=== PATIENT | female | born 1950 | race Caucasian/White ===

== ENCOUNTER 2022-01-16 03:17 | Inpatient (IN) | payer MEDICARE, MEDICAID ==
[~2022-01-16] VITALS: Ht 154.9 cm; Wt 51.3 kg
[2022-01-16] VITALS (43 sets, daily range): BP systolic 107–162; BP diastolic 51–95
[2022-01-16 05:38] LABS: CHLORIDE 111 mEq/L (98-107)
[2022-01-16 05:43] LABS: HEMOGLOBIN. 9.7 g/dL (12.0-16.0); MEAN CORPUSCULAR HEMOGLOBIN 34.2 pg (28.0-32.0); MEAN PLATELET VOLUME 7.9 fl (7.4-10.4); PLATELET 171 x1000/uL (130-400); RED BLOOD CELL COUNT 2.83 mill/uL (4.2-5.4); RED CELL DISTRIBUTION WIDTH 12.7 % (11.6-14.6)
[2022-01-16 07:10] LABS: PLATELET ESTIMATE NORMAL
[2022-01-16] MEDS ORDERED: ONDANSETRON HCL 4MG/2ML INJ IV PRN (07:15)
[2022-01-16] MEDS ORDERED: NITROGLYCERIN 0.4MG TABLET SL SL PRN (07:15)
[2022-01-16] MEDS ORDERED: IPRATROPIUM/ALBUTEROL 0.5-3(2.5)MG/3ML NEB NEB PRN (07:15)
[2022-01-16] MEDS ORDERED: LORAZEPAM 2MG/ML CPJ IV PRN (07:15)
[2022-01-16] MEDS ORDERED: NICARDIPINE 100 MG in SODIUM CHLORIDE 0.9% 60 ML IV PRN (08:00)
[2022-01-16] MEDS ORDERED: LEVETIRACETAM 500 MG in SODIUM CHLORIDE 0.9% 100 ML IV SCH (08:00)
[2022-01-16] MEDS: DEXT 5%/LACTATED RINGERS 1,000 ML IV SCH ×2 (08:48→21:24)
[2022-01-16] MEDS ORDERED: CEFTRIAXONE 1 G PREMIX 50 ML IV SCH (13:15)
[2022-01-16] MEDS ORDERED: KCL 20MEQ/100ML PREMIX 100 ML IV NR (14:00)
[2022-01-16] MEDS ORDERED: CEFTRIAXONE 1,000 MG in DEXTROSE 5% WATER 50 ML IV SCH (15:00)
[2022-01-16 18:12] LABS: INR 1.1; PARTIAL THROMBOPLASTIN TIME 26.3 sec (23.4-31.0); PROTHROMBIN TIME 11.8 sec (9.6-11.0)
[2022-01-16 20:34] LABS: CLARITY URINE CLOUDY (CLEAR); COLOR URINE YELLOW (YELLOW); KETONES URINE 1+ (NEGATIVE); LEUKOCYTE ESTERASE URINE NEGATIVE (NEGATIVE); NITRITE URINE NEGATIVE (NEGATIVE); OCCULT BLOOD URINE NEGATIVE (NEGATIVE); PH URINE 8.5 (4.5-8.0); PROTEIN URINE NEGATIVE (NEGATIVE); SPECIFIC GRAVITY URINE 1.013 (1.005-1.030); UROBILINOGEN URINE 0.2 E.U./dL (0.2-1.0)
[2022-01-16 20:57] LABS: *AMPHETAMINES SCREEN URINE NEGATIVE (NEGATIVE); *BARBITURATES SCREEN URINE NEGATIVE (NEGATIVE); *BENZODIAZEPINES SCREEN URINE NEGATIVE (NEGATIVE); *COCAINE SCREEN URINE NEGATIVE (NEGATIVE)
[2022-01-16 20:58] LABS: CANNABINOID URINE SCREEN NEGATIVE (NEGATIVE); OPIATES URINE SCREEN NEGATIVE (NEGATIVE); PHENCYCLIDINE URINE SCREEN NEGATIVE (NEGATIVE)
[2022-01-16 21:10] LABS: METHADONE URINE SCREEN NEGATIVE (NEGATIVE)
[2022-01-17] VITALS (75 sets, daily range): BP systolic 96–155; BP diastolic 36–111
[2022-01-17] MEDS: ACETAMINOPHEN 650MG SUPP PR PRN ×2 (03:40→12:07)
[2022-01-17 05:56] LABS: HEMATOCRIT. 28.5 % (36.0-48.0); HEMOGLOBIN. 9.9 g/dL (12.0-16.0); MEAN CORPUSCULAR HEMOGLOBIN 34.1 pg (28.0-32.0); MEAN CORPUSCULAR VOLUME 97.8 fL (81.0-99.0); RED BLOOD CELL COUNT 2.92 mill/uL (4.2-5.4)
[2022-01-17 05:57] LABS: CHLORIDE 106 mEq/L (98-107)
[2022-01-17 06:04] LABS: PHOSPHORUS 1.3 mg/dL (2.5-4.9)
[2022-01-17 07:51] LABS: PLATELET ESTIMATE NORMAL
[2022-01-17 07:52] LABS: MEAN PLATELET VOLUME 8.4 fl (7.4-10.4); PLATELET 191 x1000/uL (130-400)
[2022-01-17] MEDS: LEVETIRACETAM 500MG PREMIX 100 ML IV SCH ×2 (08:06→21:34)
[2022-01-17] MEDS: PANTOPRAZOLE SODIUM 40 MG/VIAL IV SCH (08:06)
[2022-01-17] MEDS: DEXT 5%/LACTATED RINGERS 1,000 ML IV SCH ×3 (09:55→22:34)
[2022-01-17] MEDS: PIPERACILLIN/TAZOBACTAM 3.375 G in DEXTROSE 5% WATER 50 ML IV SCH ×2 (11:50→21:34)
[2022-01-17] MEDS: MORPHINE SULFATE 2 MG/ML CPJ (NOT FOR IM USE) IV PRN (17:12)
[2022-01-17] MEDS ORDERED: NALOXONE HCL 0.4MG/ML VIAL IV PRN (17:15)
[2022-01-18] VITALS (91 sets, daily range): BP systolic 100–155; BP diastolic 32–93
[2022-01-18] MEDS: PIPERACILLIN/TAZOBACTAM 3.375 G in DEXTROSE 5% WATER 50 ML IV SCH ×3 (05:50→21:43)
[2022-01-18] MEDS: ACETAMINOPHEN 650MG SUPP PR PRN (05:52)
[2022-01-18] MEDS: LEVETIRACETAM 500MG PREMIX 100 ML IV SCH ×2 (08:51→21:43)
[2022-01-18] MEDS: PANTOPRAZOLE SODIUM 40 MG/VIAL IV SCH (08:51)
[2022-01-18] MEDS: MORPHINE SULFATE 2 MG/ML CPJ (NOT FOR IM USE) IV PRN ×2 (08:54→17:53)
[2022-01-18] MEDS ORDERED: LIDOCAINE HCL/PF 1% 10 MG/ML 5ML VIAL ONE (11:16)
[2022-01-18] MEDS ORDERED: SODIUM PHOS,M-BASIC-D-BASIC 30 MM in DEXT 5% WATER 500 ML IV SCH (14:00)
[2022-01-18] MEDS: DEXT 5%/LACTATED RINGERS 1,000 ML IV SCH (14:42)
[2022-01-19] VITALS (53 sets, daily range): BP systolic 102–139; BP diastolic 44–87
[2022-01-19] MEDS: DEXT 5%/LACTATED RINGERS 1,000 ML IV SCH ×2 (00:56→13:13)
[2022-01-19] MEDS: MORPHINE SULFATE 2 MG/ML CPJ (NOT FOR IM USE) IV PRN ×2 (00:56→15:05)
[2022-01-19] MEDS: PIPERACILLIN/TAZOBACTAM 3.375 G in DEXTROSE 5% WATER 50 ML IV SCH ×2 (05:47→12:34)
[2022-01-19 06:14] LABS: BASOPHILS % 0.6 % (0.0-2.0); EOSINOPHILS % 1.7 % (0.0-5.0); HEMATOCRIT. 25.4 % (36.0-48.0); HEMOGLOBIN. 8.9 g/dL (12.0-16.0); LYMPHOCYTES % 16.9 % (20.0-50.0); MEAN CORPUSCULAR HEMOGLOBIN 34.5 pg (28.0-32.0); MEAN PLATELET VOLUME 7.8 fl (7.4-10.4); MONOCYTES % 8.1 % (2.0-8.0); NEUTROPHILS % 72.7 % (40.0-76.0); PLATELET 129 x1000/uL (130-400); RED BLOOD CELL COUNT 2.57 mill/uL (4.2-5.4)
[2022-01-19 06:22] LABS: CHLORIDE 107 mEq/L (98-107)
[2022-01-19 06:28] LABS: PHOSPHORUS 2.1 mg/dL (2.5-4.9)
[2022-01-19] MEDS: LEVETIRACETAM 500MG PREMIX 100 ML IV SCH (09:11)
[2022-01-19] MEDS: PANTOPRAZOLE SODIUM 40 MG/VIAL IV SCH (09:11)
[2022-01-19] MEDS ORDERED: POTASSIUM PHOS,M-BASIC-D-BASIC 15 MMOL in DEXT 5% WATER 245 ML IV NR (12:00)
[2022-01-19] MEDS: ACETAMINOPHEN 650MG SUPP PR PRN (18:47)
[2022-01-19] MEDS: CEFTRIAXONE 1,000 MG in DEXTROSE 5% WATER 50 ML IV SCH (22:38)
[2022-01-20] VITALS: BP 149/56
[2022-01-20] MEDS: DEXT 5%/LACTATED RINGERS 1,000 ML IV SCH ×2 (01:03→18:46)
[2022-01-20] MEDS: ACETAMINOPHEN 650MG SUPP PR PRN (01:10)
[2022-01-20] MEDS: LEVETIRACETAM 500MG PREMIX 100 ML IV SCH ×3 (01:56→22:08)
[2022-01-20 04:00] VITALS: BP 123/57
[2022-01-20 08:00] VITALS: BP 184/76
[2022-01-20] MEDS: PANTOPRAZOLE SODIUM 40 MG/VIAL IV SCH (09:47)
[2022-01-20 10:21] LABS: CHLORIDE 107 mEq/L (98-107)
[2022-01-20 10:29] LABS: CREATINE KINASE 45 IU/L (26-192)
[2022-01-20 12:00] VITALS: BP 170/66
[2022-01-20 16:00] VITALS: BP 162/74
[2022-01-20 19:31] LABS: HEMATOCRIT. 24.7 % (36.0-48.0); HEMOGLOBIN. 8.7 g/dL (12.0-16.0); MEAN CORPUSCULAR HEMOGLOBIN 34.9 pg (28.0-32.0); MEAN CORPUSCULAR VOLUME 99.6 fL (81.0-99.0); MEAN PLATELET VOLUME 8.3 fl (7.4-10.4); PLATELET 140 x1000/uL (130-400); RED BLOOD CELL COUNT 2.48 mill/uL (4.2-5.4); RED CELL DISTRIBUTION WIDTH 13.6 % (11.6-14.6)
[2022-01-20 20:00] VITALS: BP 147/50
[2022-01-20 20:11] LABS: PLATELET ESTIMATE NORMAL
[2022-01-20] MEDS: CEFTRIAXONE 1,000 MG in DEXTROSE 5% WATER 50 ML IV SCH (22:07)
[2022-01-21] VITALS (7 sets, daily range): BP systolic 106–141; BP diastolic 45–56
[2022-01-21] MEDS: DEXT 5%/LACTATED RINGERS 1,000 ML IV SCH ×2 (06:44→20:34)
[2022-01-21 07:05] LABS: CHLORIDE 107 mEq/L (98-107)
[2022-01-21] MEDS: LEVETIRACETAM 500MG PREMIX 100 ML IV SCH ×2 (08:36→21:42)
[2022-01-21] MEDS: PANTOPRAZOLE SODIUM 40 MG/VIAL IV SCH ×2 (08:36→16:40)
[2022-01-21] MEDS ORDERED: POTASSIUM CHLORIDE INJ 40 MEQ in DEXT 5% WATER 250 ML IV ONE (10:30)
[2022-01-21] MEDS ORDERED: POTASSIUM CHLORIDE 20MEQ/PACKET PO NR (10:30)
[2022-01-21] MEDS: KCL 20MEQ/100ML X 2 FOR TOTAL KCL 40MEQ/200ML IV SCH ×2 (13:23→15:30)
[2022-01-21] MEDS: CEFTRIAXONE 1,000 MG in DEXTROSE 5% WATER 50 ML IV SCH (20:34)
[2022-01-22 04:13] VITALS: BP 107/56
[2022-01-22 08:00] VITALS: BP 116/44
[2022-01-22] MEDS: ASCORBIC ACID 500 MG TABLET PO SCH (08:03)
[2022-01-22] MEDS: ZINC SULFATE 220 MG ( 50 ) CAPSULE PO SCH (08:03)
[2022-01-22 08:04] LABS: BASOPHILS % 0.7 % (0.0-2.0); EOSINOPHILS % 0.5 % (0.0-5.0); HEMOGLOBIN. 8.9 g/dL (12.0-16.0); LYMPHOCYTES % 8.9 % (20.0-50.0); MEAN CORPUSCULAR HEMOGLOBIN 33.9 pg (28.0-32.0); MEAN CORPUSCULAR VOLUME 98.9 fL (81.0-99.0); MONOCYTES % 5.8 % (2.0-8.0); NEUTROPHILS % 84.1 % (40.0-76.0); PLATELET 144 x1000/uL (130-400); RED BLOOD CELL COUNT 2.62 mill/uL (4.2-5.4); RED CELL DISTRIBUTION WIDTH 13.5 % (11.6-14.6)
[2022-01-22 08:10] LABS: INR 1.2; PROTHROMBIN TIME 12.6 sec (9.6-11.0)
[2022-01-22 08:20] LABS: CHLORIDE 110 mEq/L (98-107)
[2022-01-22] MEDS: PANTOPRAZOLE SODIUM 40 MG/VIAL IV SCH ×2 (08:45→18:18)
[2022-01-22] MEDS: LEVETIRACETAM 500MG PREMIX 100 ML IV SCH ×2 (08:45→22:54)
[2022-01-22] MEDS ORDERED: ASCORBIC ACID 250 MG TABLET PO SCH (09:00)
[2022-01-22] MEDS: ACETAMINOPHEN 650MG SUPP PR PRN ×2 (09:52→20:37)
[2022-01-22 12:00] VITALS: BP 144/55
[2022-01-22] MEDS ORDERED: MIDAZOLAM HCL 5 MG/5 ML VIAL IV PRN (12:10)
[2022-01-22] MEDS ORDERED: FENTANYL CITRATE/PF 50MCG/ML 2ML VIAL IV PRN (12:11)
[2022-01-22] MEDS ORDERED: MIDAZOLAM HCL 5 MG/5 ML VIAL ONE (12:17)
[2022-01-22] MEDS ORDERED: FENTANYL CITRATE/PF 50MCG/ML 2ML VIAL ONE (12:17)
[2022-01-22 16:00] VITALS: BP 143/57
[2022-01-22] MEDS ORDERED: DIATR MEGLU/DIATRIZOATE SOLN 30ML PO NR (16:15)
[2022-01-22] MEDS: DEXT 5%/LACTATED RINGERS 1,000 ML IV SCH ×2 (19:55→23:15)
[2022-01-22 20:00] VITALS: BP 120/45
[2022-01-22] MEDS: CEFTRIAXONE 1,000 MG in DEXTROSE 5% WATER 50 ML IV SCH (20:37)
[2022-01-23] VITALS: BP 97/41
[2022-01-23 03:47] VITALS: BP 103/40
[2022-01-23 08:00] VITALS: BP 147/57
[2022-01-23 08:15] LABS: HEMATOCRIT. 25.6 % (36.0-48.0); HEMOGLOBIN. 8.8 g/dL (12.0-16.0); MEAN CORPUSCULAR HEMOGLOBIN 34.5 pg (28.0-32.0); MEAN PLATELET VOLUME 8.2 fl (7.4-10.4); PLATELET 137 x1000/uL (130-400); RED BLOOD CELL COUNT 2.56 mill/uL (4.2-5.4); RED CELL DISTRIBUTION WIDTH 13.4 % (11.6-14.6)
[2022-01-23 08:17] LABS: CHLORIDE 108 mEq/L (98-107)
[2022-01-23] MEDS: ASCORBIC ACID 500 MG TABLET PO SCH (09:24)
[2022-01-23] MEDS: PANTOPRAZOLE SODIUM 40 MG/VIAL IV SCH ×2 (09:24→17:09)
[2022-01-23] MEDS: ZINC SULFATE 220 MG ( 50 ) CAPSULE PO SCH (09:24)
[2022-01-23] MEDS: LEVETIRACETAM 500MG PREMIX 100 ML IV SCH ×2 (09:26→20:26)
[2022-01-23] MEDS: DEXT 5%/LACTATED RINGERS 1,000 ML IV SCH (09:26)
[2022-01-23 10:21] LABS: PLATELET ESTIMATE NORMAL
[2022-01-23 12:00] VITALS: BP 107/47
[2022-01-23 16:00] VITALS: BP 126/73
[2022-01-23 20:00] VITALS: BP 123/45
[2022-01-23] MEDS: CEFTRIAXONE 1,000 MG in DEXTROSE 5% WATER 50 ML IV SCH (20:26)
[2022-01-24] VITALS: BP 115/49
[2022-01-24] MEDS: ACETAMINOPHEN 650MG SUPP PR PRN (01:25)
[2022-01-24] MEDS: DEXT 5%/LACTATED RINGERS 1,000 ML IV SCH ×3 (02:14→18:46)
[2022-01-24 04:00] VITALS: BP 102/50
[2022-01-24 08:00] VITALS: BP 106/51
[2022-01-24] MEDS: ASCORBIC ACID 500 MG TABLET PO SCH (09:00)
[2022-01-24] MEDS: ZINC SULFATE 220 MG ( 50 ) CAPSULE PO SCH (09:00)
[2022-01-24 12:00] VITALS: BP 107/54
[2022-01-24] MEDS: LEVETIRACETAM 500MG PREMIX 100 ML IV SCH ×2 (13:37→20:48)
[2022-01-24] MEDS: PANTOPRAZOLE SODIUM 40 MG/VIAL IV SCH ×2 (13:39→18:46)
[2022-01-24 16:00] VITALS: BP 110/55
[2022-01-24 20:00] VITALS: BP 130/45
[2022-01-24] MEDS: CEFTRIAXONE 1,000 MG in DEXTROSE 5% WATER 50 ML IV SCH (20:48)
[2022-01-25] VITALS: BP 119/59
[2022-01-25] MEDS: ACETAMINOPHEN 650MG SUPP PR PRN ×2 (01:53→10:40)
[2022-01-25 04:00] VITALS: BP 113/48
[2022-01-25 07:01] LABS: BASOPHILS % 0.9 % (0.0-2.0); EOSINOPHILS % 3.9 % (0.0-5.0); HEMATOCRIT. 22.4 % (36.0-48.0); HEMOGLOBIN. 7.8 g/dL (12.0-16.0); LYMPHOCYTES % 12.6 % (20.0-50.0); MEAN CORPUSCULAR HEMOGLOBIN 34.5 pg (28.0-32.0); MEAN PLATELET VOLUME 8.4 fl (7.4-10.4); MONOCYTES % 5.4 % (2.0-8.0); NEUTROPHILS % 77.2 % (40.0-76.0); PLATELET 156 x1000/uL (130-400); RED BLOOD CELL COUNT 2.26 mill/uL (4.2-5.4); RED CELL DISTRIBUTION WIDTH 13.4 % (11.6-14.6)
[2022-01-25 07:04] LABS: CHLORIDE 108 mEq/L (98-107)
[2022-01-25 08:00] VITALS: BP 107/54
[2022-01-25] MEDS: FAMOTIDINE 20MG/2ML VIAL IV SCH (08:46)
[2022-01-25] MEDS: ZINC SULFATE 220 MG ( 50 ) CAPSULE PO SCH (08:46)
[2022-01-25] MEDS: LEVETIRACETAM 500MG PREMIX 100 ML IV SCH ×2 (08:46→20:46)
[2022-01-25] MEDS: ASCORBIC ACID 500 MG TABLET PO SCH (08:47)
[2022-01-25 12:00] VITALS: BP 129/53
[2022-01-25 16:00] VITALS: BP 128/58
[2022-01-25] MEDS: DEXT 5%/LACTATED RINGERS 1,000 ML IV SCH (17:59)
[2022-01-25 20:00] VITALS: BP 125/52
[2022-01-26] VITALS: BP 113/42
[2022-01-26 04:02] VITALS: BP 121/53
[2022-01-26] MEDS: DEXT 5%/LACTATED RINGERS 1,000 ML IV SCH ×2 (06:22→21:34)
[2022-01-26] MEDS: ACETAMINOPHEN 650MG SUPP PR PRN ×3 (07:22→21:34)
[2022-01-26 08:00] VITALS: BP 130/54
[2022-01-26] MEDS: ASCORBIC ACID 500 MG TABLET PO SCH (09:48)
[2022-01-26] MEDS: ZINC SULFATE 220 MG ( 50 ) CAPSULE PO SCH (09:48)
[2022-01-26] MEDS: FAMOTIDINE 20MG/2ML VIAL IV SCH (09:48)
[2022-01-26] MEDS: LEVETIRACETAM 500MG PREMIX 100 ML IV SCH ×2 (09:48→21:34)
[2022-01-26 12:00] VITALS: BP 124/63
[2022-01-26 16:00] VITALS: BP 134/70
[2022-01-26 20:00] VITALS: BP 119/48
[2022-01-27] VITALS: BP 118/53
[2022-01-27] MEDS: ACETAMINOPHEN 650MG SUPP PR PRN ×2 (03:15→20:35)
[2022-01-27 04:00] VITALS: BP 113/43
[2022-01-27 08:00] VITALS: BP 136/54
[2022-01-27] MEDS: ZINC SULFATE 220 MG ( 50 ) CAPSULE PO SCH (09:28)
[2022-01-27] MEDS: LEVETIRACETAM 500MG PREMIX 100 ML IV SCH ×2 (09:29→20:34)
[2022-01-27] MEDS: FAMOTIDINE 20MG/2ML VIAL IV SCH (09:29)
[2022-01-27] MEDS: ASCORBIC ACID 500 MG TABLET PO SCH (09:29)
[2022-01-27 12:00] VITALS: BP 111/52
[2022-01-27] MEDS: DEXT 5%/LACTATED RINGERS 1,000 ML IV SCH ×2 (14:10→23:43)
[2022-01-27 16:00] VITALS: BP 120/59
[2022-01-27 20:00] VITALS: BP 129/51
[2022-01-28] VITALS: BP 134/62
[2022-01-28 04:00] VITALS: BP 126/55
[2022-01-28 08:00] VITALS: BP 105/61
[2022-01-28] MEDS: FAMOTIDINE 20MG/2ML VIAL IV SCH (09:12)
[2022-01-28] MEDS: ASCORBIC ACID 500 MG TABLET PO SCH (09:12)
[2022-01-28] MEDS: ZINC SULFATE 220 MG ( 50 ) CAPSULE PO SCH (09:12)
[2022-01-28] MEDS: LEVETIRACETAM 500MG PREMIX 100 ML IV SCH ×2 (09:13→20:35)
[2022-01-28] MEDS: ACETAMINOPHEN 650MG SUPP PR PRN ×2 (09:32→20:40)
[2022-01-28 12:00] VITALS: BP 127/57
[2022-01-28] MEDS: DEXT 5%/LACTATED RINGERS 1,000 ML IV SCH (15:34)
[2022-01-28 16:00] VITALS: BP 127/48
[2022-01-28 20:00] VITALS: BP 133/64
[2022-01-29] VITALS: BP 138/65
[2022-01-29] MEDS: DEXT 5%/LACTATED RINGERS 1,000 ML IV SCH ×2 (02:03→17:15)
[2022-01-29] MEDS: ACETAMINOPHEN 650MG SUPP PR PRN ×2 (03:59→09:34)
[2022-01-29 04:00] VITALS: BP 135/66
[2022-01-29 07:17] LABS: CHLORIDE 106 mEq/L (98-107)
[2022-01-29 07:53] LABS: EOSINOPHILS % 3.9 % (0.0-5.0); HEMOGLOBIN. 9.3 g/dL (12.0-16.0); LYMPHOCYTES % 10.3 % (20.0-50.0); MEAN CORPUSCULAR HEMOGLOBIN 34.6 pg (28.0-32.0); MEAN PLATELET VOLUME 7.4 fl (7.4-10.4); MONOCYTES % 6.8 % (2.0-8.0); PLATELET 174 x1000/uL (130-400); RED CELL DISTRIBUTION WIDTH 13.8 % (11.6-14.6)
[2022-01-29 08:05] VITALS: BP_SYST 113; BP_SYST 167; BP_DIAS 52; BP_DIAS 85
[2022-01-29] MEDS: LEVETIRACETAM 500MG PREMIX 100 ML IV SCH ×2 (09:33→20:59)
[2022-01-29] MEDS: ZINC SULFATE 220 MG ( 50 ) CAPSULE PO SCH (09:34)
[2022-01-29] MEDS: ASCORBIC ACID 500 MG TABLET PO SCH (09:34)
[2022-01-29] MEDS: FAMOTIDINE 20MG/2ML VIAL IV SCH (09:34)
[2022-01-29] MEDS ORDERED: DEXTROSE 50% WATER 50ML SYRINGE IV PRN (11:00)
[2022-01-29] MEDS: BLOOD SUGAR DIAGNOSTIC STRIP TEST SCH ×3 (12:23→21:00)
[2022-01-29] MEDS: INSULIN LISPRO 100 UNITS/ML SUBCUT SCH ×3 (12:26→21:00)
[2022-01-29 16:00] VITALS: BP 105/47
[2022-01-29 20:00] VITALS: BP 132/56
[2022-01-30 00:04] VITALS: BP 114/54
[2022-01-30] MEDS: DEXT 5%/LACTATED RINGERS 1,000 ML IV SCH ×2 (03:58→18:51)
[2022-01-30 04:00] VITALS: BP 120/50
[2022-01-30] MEDS: BLOOD SUGAR DIAGNOSTIC STRIP TEST SCH ×4 (06:38→21:35)
[2022-01-30 08:00] VITALS: BP 125/56
[2022-01-30] MEDS: ZINC SULFATE 220 MG ( 50 ) CAPSULE PO SCH (08:13)
[2022-01-30] MEDS: LEVETIRACETAM 500MG PREMIX 100 ML IV SCH ×2 (08:13→21:39)
[2022-01-30] MEDS: FAMOTIDINE 20MG/2ML VIAL IV SCH (08:13)
[2022-01-30] MEDS: ASCORBIC ACID 500 MG TABLET PO SCH (08:13)
[2022-01-30] MEDS: INSULIN LISPRO 100 UNITS/ML SUBCUT SCH ×4 (08:14→21:40)
[2022-01-30 12:00] VITALS: BP 119/56
[2022-01-30 16:00] VITALS: BP 151/69
[2022-01-30] MEDS: ACETAMINOPHEN 650MG SUPP PR PRN (17:42)
[2022-01-30 20:00] VITALS: BP 117/54
[2022-01-31] VITALS: BP 125/61
[2022-01-31 04:00] VITALS: BP 115/55
[2022-01-31 06:04] LABS: BASOPHILS % 0.8 % (0.0-2.0); EOSINOPHILS % 4.2 % (0.0-5.0); HEMATOCRIT. 28.3 % (36.0-48.0); HEMOGLOBIN. 9.7 g/dL (12.0-16.0); LYMPHOCYTES % 9.2 % (20.0-50.0); MEAN CORPUSCULAR HEMOGLOBIN 34.5 pg (28.0-32.0); MEAN CORPUSCULAR VOLUME 100.4 fL (81.0-99.0); MEAN PLATELET VOLUME 7.5 fl (7.4-10.4); MONOCYTES % 6.8 % (2.0-8.0); PLATELET 195 x1000/uL (130-400); RED BLOOD CELL COUNT 2.82 mill/uL (4.2-5.4); RED CELL DISTRIBUTION WIDTH 14.1 % (11.6-14.6)
[2022-01-31 06:24] LABS: CHLORIDE 107 mEq/L (98-107)
[2022-01-31] MEDS: DEXT 5%/LACTATED RINGERS 1,000 ML IV SCH ×2 (06:36→22:25)
[2022-01-31] MEDS: BLOOD SUGAR DIAGNOSTIC STRIP TEST SCH ×4 (06:36→21:00)
[2022-01-31] MEDS: ACETAMINOPHEN 650MG SUPP PR PRN (06:50)
[2022-01-31 08:00] VITALS: BP 120/59
[2022-01-31] MEDS: LEVETIRACETAM 500MG PREMIX 100 ML IV SCH ×2 (08:52→22:35)
[2022-01-31] MEDS: FAMOTIDINE 20MG/2ML VIAL IV SCH (08:52)
[2022-01-31] MEDS: ASCORBIC ACID 500 MG TABLET PO SCH (08:53)
[2022-01-31] MEDS: ZINC SULFATE 220 MG ( 50 ) CAPSULE PO SCH (08:53)
[2022-01-31] MEDS: INSULIN LISPRO 100 UNITS/ML SUBCUT SCH ×4 (08:57→22:36)
[2022-01-31 12:00] VITALS: BP 103/47
[2022-01-31 16:00] VITALS: BP 114/60
[2022-01-31 20:00] VITALS: BP 116/61
[2022-02-01] VITALS: BP 111/61
[2022-02-01 04:00] VITALS: BP 119/68
[2022-02-01] MEDS: ACETAMINOPHEN 650MG SUPP PR PRN (06:06)
[2022-02-01] MEDS: INSULIN LISPRO 100 UNITS/ML SUBCUT SCH ×2 (06:08→13:27)
[2022-02-01] MEDS: BLOOD SUGAR DIAGNOSTIC STRIP TEST SCH ×2 (07:20→12:20)
[2022-02-01 08:15] VITALS: BP 108/46
[2022-02-01] MEDS: FAMOTIDINE 20MG/2ML VIAL IV SCH (08:52)
[2022-02-01] MEDS: ZINC SULFATE 220 MG ( 50 ) CAPSULE PO SCH (08:52)
[2022-02-01] MEDS: LEVETIRACETAM 500MG PREMIX 100 ML IV SCH (08:52)
[2022-02-01] MEDS: ASCORBIC ACID 500 MG TABLET PO SCH (08:52)
[2022-02-01] MEDS: DEXT 5%/LACTATED RINGERS 1,000 ML IV SCH (09:01)
[2022-02-01 12:03] VITALS: BP 119/51
[2022-02-01 12:57] VITALS: BP 119/51
== END 2022-02-01 15:10 | DRG 64 ==
LOC: ER 03:17 → MICUSO 04:57 → 6WST 01-19 14:30
PROVIDERS: ADMIT Internal Medicine; ATTEND Internal Medicine
PROC: 02H633Z Insertion of Infusion Device into Right Atrium, Percutaneous Approach (ICD-10-PCS; 2022-01-18)
PROC: 0DH64UZ Insertion of Feeding Device into Stomach, Percutaneous Endoscopic Approach (ICD-10-PCS; principal; 2022-01-22)
DX: I61.1 Nontraumatic intracerebral hemorrhage in hemisphere, cortical (principal); G92.9 Unspecified toxic encephalopathy; E43 Unspecified severe protein-calorie malnutrition; G93.6 Cerebral edema; G96.08 Other cranial cerebrospinal fluid leak; I82.611 Acute embolism and thrombosis of superficial veins of right upper extremity; I62.01 Nontraumatic acute subdural hemorrhage; I62.03 Nontraumatic chronic subdural hemorrhage; I60.9 Nontraumatic subarachnoid hemorrhage, unspecified; E87.6 Hypokalemia; Z20.822 Contact with and (suspected) exposure to COVID-19; D53.9 Nutritional anemia, unspecified; D69.6 Thrombocytopenia, unspecified; R13.12 Dysphagia, oropharyngeal phase; D72.825 Bandemia; E88.09 Other disorders of plasma-protein metabolism, not elsewhere classified; G93.89 Other specified disorders of brain; Z86.73 Personal history of transient ischemic attack (TIA), and cerebral infarction without residual deficits; Z68.21 Body mass index [BMI] 21.0-21.9, adult; R26.2 Difficulty in walking, not elsewhere classified; Z91.81 History of falling
CPT/HCPCS: 36415; 70551; 71045; 74018; 74176; 76937; 80048; 80053; 80061; 80305; 81003; 82550; 82607; 82728; 82746; 82962; 83036; 83540; 83550; 83735; 84100; 84145; 84443; 85025; 85651; 86140; 87426; 92610; 93005; 93306; 93970; 97110; 97162; 97165; 99285; A6261; C1725; C1893; C9113; J0696; J1815; J1953; J2060; J2250; J2270; J2405; J2543; J3010; J3480; J3490; J7040; J7050; J7060; J7070; J7121; Q9963